=== PATIENT | female | born 1985 | race Caucasian/White ===

== ENCOUNTER 2022-10-14 06:35 | Day surgery (SDC) | payer OTHER ==
[~2022-10-14] VITALS: Ht 160 cm; Wt 98.9 kg
[2022-10-14] MEDS ORDERED: MIDAZOLAM 5 MG/5 ML VIAL ONE (07:18)
[2022-10-14] MEDS ORDERED: diphenhydrAMINE 50 MG/ML VIAL ONE (07:18)
[2022-10-14] MEDS ORDERED: fentaNYL citrate 0.05 MG/ML VIAL ONE (07:18)
[2022-10-14] MEDS: MIDAZOLAM 5 MG/5 ML VIAL IV ONE (07:25)
[2022-10-14] MEDS: fentaNYL citrate 0.05 MG/ML VIAL IVP ONE (07:26)
[2022-10-14] MEDS: LIDOCAINE 2% 100 MG/5 ML UJET TP ONE (07:30)
[2022-10-14] MEDS: diphenhydrAMINE 50 MG/ML VIAL IVP ONE (07:30)
== END 2022-10-14 09:10 | disposition home or self-care (01) ==
LOC: MDS 06:35 → MMU 06:44 → MDS 09:10
PROVIDERS: ATTEND Internal Medicine Gastroenterology
DX: K62.5 Hemorrhage of anus and rectum (principal); K59.00 Constipation, unspecified; I10 Essential (primary) hypertension; E78.5 Hyperlipidemia, unspecified; F32.A Depression, unspecified; E11.9 Type 2 diabetes mellitus without complications; Z90.49 Acquired absence of other specified parts of digestive tract; K63.5 Polyp of colon; K64.8 Other hemorrhoids; F41.9 Anxiety disorder, unspecified; E66.9 Obesity, unspecified; Z68.38 Body mass index [BMI] 38.0-38.9, adult; Z79.899 Other long term (current) drug therapy
CPT/HCPCS: J1200; J2250; J3010

== ENCOUNTER 2022-11-25 08:51 | Day surgery (SDC) | payer OTHER ==
[~2022-11-25] VITALS: Ht 165.1 cm; Wt 90.7 kg
[2022-11-25] MEDS ORDERED: MIDAZOLAM 5 MG/5 ML VIAL ONE (09:30)
[2022-11-25] MEDS ORDERED: fentaNYL citrate 0.05 MG/ML VIAL ONE (09:30)
[2022-11-25] MEDS ORDERED: diphenhydrAMINE 50 MG/ML VIAL ONE (09:30)
[2022-11-25] MEDS ORDERED: fentaNYL citrate 0.05 MG/ML VIAL IVP ONE (10:20)
[2022-11-25] MEDS ORDERED: diphenhydrAMINE 50 MG/ML VIAL IVP ONE (10:20)
[2022-11-25] MEDS ORDERED: MIDAZOLAM 2 MG/2 ML VIAL IVP ONE (10:20)
== END 2022-11-25 10:55 | disposition home or self-care (01) ==
LOC: MDS 08:51 → MMU 08:52 → MDS 10:55
PROVIDERS: ATTEND Internal Medicine Gastroenterology
DX: K30 Functional dyspepsia (principal); R14.1 Gas pain; R68.81 Early satiety; Z90.49 Acquired absence of other specified parts of digestive tract
CPT/HCPCS: 43239; J1200; J2250; J3010